=== PATIENT | male | born 1955 | race Caucasian/White ===

== ENCOUNTER → 2020-07-09 | Outpatient (CLI) | payer OTHER ==
[~2020-07-09] MED LIST: AMARYL2 M1 PO; CARDURA4 MG PO; CRESTOR10 MG PO; FLONASE 0.05%50 MCG NARES; GLUCOPHAGE1000 MG PO; HYDROCODON-ACE1 EAC7 PO; NEURONTIN 300M300 M2 PO; NORCO5 PO; OMEPRAZOLE 20 M20 M1 PO; PRAVACHOL20 MG PO; TRULICITY1.5 MG/0.5 SUBQ; ZESTRIL10 MG PO
== END ==
LOC: M.LAB 16:27
PROVIDERS: ATTEND Surgery
DX: Z01.812 Encounter for preprocedural laboratory examination (principal); Z20.822 Contact with and (suspected) exposure to COVID-19

== ENCOUNTER 2020-07-11 13:46 | Observation (INO) | payer OTHER ==
[~2020-07-11] VITALS: Ht 165.1 cm; Wt 77.1 kg
--- NOTE | ~2020-07-11 | OP ---
[facility] [address] [place] [address] [address] OPERATIVE REPORT Name: YESSICA CANTU Room: [facility].#: [id number] Admission: 07/11/20 Attend Phys: Kelvin May Discharge: Date of : 57 Report #: [id number] THIS REPORT FOR: cc: ZAYNAB BOWENS Physician not on staff Kelvin May MD ~ DATE OF SERVICE: 07/11/2020 PREOPERATIVE DIAGNOSIS: Recurrent right inguinal hernia. POSTOPERATIVE DIAGNOSIS: Recurrent right inguinal hernia. OPERATION: Laparoscopic repair of recurrent right inguinal hernia with mesh. SURGEON: Kelvin May MD ANESTHESIA: General. ESTIMATED BLOOD LOSS: Minimal. SPECIMEN: None. DESCRIPTION OF PROCEDURE: After informed consent was obtained, the patient was brought to the operating room and placed supine. SCDs were placed and working, preoperative antibiotics were administered, general anesthesia was induced. The abdomen was prepped and draped in the usual sterile fashion. The right groin was prepped and draped. A 6 cm incision was made 1 cm above the right inguinal ring. The cautery was used to dissect down through the subcutaneous tissue. Remigio's fascia was incised with cautery. The aponeurosis of the external oblique was encountered. The aponeurosis was incised along the length of its fibers. The cord structures were identified. The cord was retracted laterally. I dissected out the hernia sac. This was a direct inguinal hernia. An Ethicon Prolene soft mesh was then trimmed to fit the area. It was sutured to the pubic tubercle with a 2-0 Prolene suture. I then cut a space for the tails. It was then sutured to the conjoined tendon and the shelving edge of the inguinal ligament with an interrupted 2-0 Prolene sutures. The tails were tucked around the cord and placed posterior to the aponeurosis. This was a tension-free repair. The aponeurosis was then closed with 2-0 Vicryl in a running fashion. Remigio's fascia was closed with a 3-0 Vicryl suture and the skin was closed with 4-0 Monocryl in running subcuticular fashion. The incision was dressed with Steri-Strips and gauze. Sterile dressings were applied. COMPLICATIONS: [place] [address] OPERATIVE REPORT Name: YESSICA CANTU Room: [facility]#: [id number] Admission: 07/11/20 Attend Phys: Kelvin May Discharge: Date of : 57 Report #: [id number] DISPOSITION: The patient was taken to recovery in satisfactory condition. By: [id number] May MD /nt
[~2020-07-11 13:46] MED LIST changes: -AMARYL2 M1 PO; -CARDURA4 MG PO; -CRESTOR10 MG PO; -FLONASE 0.05%50 MCG NARES; -GLUCOPHAGE1000 MG PO; -HYDROCODON-ACE1 EAC7 PO; -NEURONTIN 300M300 M2 PO; -OMEPRAZOLE 20 M20 M1 PO; -PRAVACHOL20 MG PO; -TRULICITY1.5 MG/0.5 SUBQ; -ZESTRIL10 MG PO
[2020-07-11] MEDS ORDERED: PRAVACHOL20 MG PO (14:33)
[2020-07-11] MEDS ORDERED: CRESTOR10 MG PO (14:36)
[2020-07-11] MEDS ORDERED: AMARYL2 M1 PO (14:37)
[2020-07-11 14:39] LABS: HEMATOCRIT 45.4 % (42.0-52.0); HEMOGLOBIN 15.4 gm/dL (14.0-18.0); MCH 29.7 pg (26.0-34.0); MCHC 33.9 g/dL (28.0-37.0); MCV 87.6 fL (80.0-100.0); MPV 7.2 fl. (7.2-11.1); RBC 5.18 mil/uL (4.50-6.00); RDW-CV 13.2 % (10.5-14.5); WBC 5.5 thou/uL (4.0-11.0)
[2020-07-11] MEDS ORDERED: NEURONTIN 300M300 M2 PO ×2 (14:39→14:41)
[2020-07-11] MEDS ORDERED: ZESTRIL10 MG PO (14:41)
[2020-07-11] MEDS ORDERED: CARDURA4 MG PO (14:43)
[2020-07-11] MEDS ORDERED: TRULICITY1.5 MG/0.5 SUBQ (14:45)
[2020-07-11] MEDS ORDERED: OMEPRAZOLE 20 M20 M1 PO (14:46)
[2020-07-11] MEDS ORDERED: GLUCOPHAGE1000 MG PO (14:48)
[2020-07-11] MEDS ORDERED: FLONASE 0.05%50 MCG NARES (14:48)
[2020-07-11 14:50] LABS: CALCIUM 9.1 mg/dL (8.5-10.1); CREATININE 0.8 mg/dL (0.6-1.3); POTASSIUM 4.2 mmol/L (3.5-5.1)
--- NOTE | 2020-07-11 14:57 | EKG ---
[place] [address] ELECTROCARDIOGRAM REPORT Name: YESSICA CANTU Room: 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
[2020-07-11] MEDS ORDERED: HYDROCODON-ACE1 EAC7 PO (17:07)
[2020-07-11 18:54] VITALS: BP 137/72
[2020-07-11 19:48] VITALS: BP 131/67
[2020-07-12 00:02] VITALS: BP 110/67
[2020-07-12 04:12] VITALS: BP 110/65
--- NOTE | 2020-07-12 04:36 | NUR ---
PT A&OX4, VSS ON ROOM AIR, IV SALINE LOCKED, PT UP SBA, PT RESTING IN BED, BEGINNING OF SHIFT PAIN 1-2, PT DENIES ANY PAIN OR DISCOMFORT SINCE APPROX 2200. WILL CONTINUE TO MONITOR.
[2020-07-12 08:00] VITALS: BP 137/74
[2020-07-12 12:24] VITALS: BP 137/74
--- NOTE | 2020-07-12 14:36 | NUR ---
PT DISCHARGED HOME WITH ALL BELONGINGS ACCOMPANIED BY A FRIEND. PT AMBULATING WITH STEADY GAIT. PT STATED HE HAS A LITTLE PAIN BUT THE ICE BAG HELPS A LOT. SALINE LOCK REMOVED HUB INTACT. PT DISCHARGED HOME.
== END 2020-07-12 14:30 | disposition home or self-care (01) ==
LOC: M.SUR 13:46 → M.ORTHSURG 17:47
PROVIDERS: ADMIT Surgery; ATTEND Surgery
DX: K40.91 Unilateral inguinal hernia, without obstruction or gangrene, recurrent (principal); Z79.899 Other long term (current) drug therapy